=== PATIENT | male | born 1985 | race Caucasian/White ===

== ENCOUNTER 2016-11-07 22:53 | Emergency (ER) | payer BC ==
[2016-11-07] MEDS ORDERED: PREDNISONE 20 MG TAB PO ONE (23:05)
[2016-11-07] MEDS ORDERED: DIPHENHYDRAMINE HCL 25 MG CAPSULE PO ONE (23:05)
--- NOTE | 2016-11-07 23:12 | Emergency Department Record ---
History of Present Illness - General Chief complaint: Rash Stated complaint: RASH ON CHEST,BACK Time Seen by Provider: 11/07/16 23:05 Source: Patient Mode of Arrival: Ambulatory Limitations: No limitations - History of Present Illness Initial comments: 31 yo male presents to ED with a worsening rash since 17:00 this evening. Patient reports itching and redness to the chest and back, denies any new medications, foods, or contact with a new soap or detergent. Patient denies throat swelling, tongue swelling, or difficulty breathing. Patient denies health problems at his baseline. MD complaint: Rash Onset/Timin -: Hour(s) Location: Neck, Chest, Back Severity: Moderate Consistency: Constant Improves with: None Worsens with: None Associated symptoms: Itching Treatments Prior to Arrival: None - Related Data Previous Rx's Medication Instructions Recorded Famotidine [Pepcid] 40 mg PO DAILY #5 tablet 11/07/16 Prednisone [Prednisone 20Mg] 20 mg PO TID #12 tab 11/07/16 Allergies Allergy/AdvReac Type Severity Reaction Status Date / Time No Known Drug Allergies Allergy Verified 11/07/16 23:03 Travel Screening - Travel/Exposure Within Last 30 Days Have you traveled within the last 30 days?: No - Travel/Exposure Within Last Year Have you traveled outside the [place] in the last year?: No - Additonal Travel Details Have you been exposed to anyone with a communicable illness?: No - Travel Symptoms Symptom Screening: None Review of Systems Constitutional: Denies: Chills, Fever, Malaise, Night sweats Eyes: Denies: Eye discharge, Eye pain ENT: Denies: Congestion, Ear pain, Epistaxis Respiratory: Denies: Cough, Dyspnea Cardiovascular: Denies: Chest pain, Dyspnea on exertion Endocrine: Denies: Fatigue, Heat or cold intolerance Gastrointestinal: Denies: Abdominal pain, Nausea, Vomiting Genitourinary: Denies: Incontinence, Retention Musculoskeletal: Denies: Arthralgia, Back pain, Gout, Joint swelling Skin: Reports: Pruritus, Rash. Denies: Bruising, Change in color Neurological: Denies: Abnormal gait, Confusion, Headache, Seizure Psychiatric: Denies: Anxiety Hematological/Lymphatic: Denies: Anemia, Blood Clots Past Medical History - SOCIAL HISTORY Smoking Status: Never smoker Alcohol Use: None Drug Use: None - RESPIRATORY Hx Respiratory Disorders: No - CARDIOVASCULAR Hx Cardio Disorders: No - NEURO Hx Neuro Disorders: No - GI Hx GI Disorders: No - Hx Genitourinary Disorders: No - ENDOCRINE Hx Endocrine Disorders: No - MUSCULOSKELETAL Hx Musculoskeletal Disorders: No - PSYCH Hx Psych Problems: No - HEMATOLOGY/ONCOLOGY Hx Hematology/Oncology Disorders: No Family Medical History Any Significant Family History?: No Physical Exam - General General Appearance: Alert, Oriented x3, Cooperative, No acute distress Limitations: No limitations - Head Head exam: Atraumatic, Normocephalic, Normal inspection Head exam detail: negative: Abrasion, Contusion, Nicholson's sign, General tenderness, Hematoma, Laceration - Eye Eye exam: Normal appearance. negative: Conjunctival injection, Periorbital swelling, Periorbital tenderness, Scleral icterus - ENT Ear exam: negative: Auricular hematoma, Auricular trauma Nasal Exam: negative: Active bleeding, Discharge, Dried blood, Foreign body Mouth exam: negative: Drooling, Laceration, Muffled voice, Tongue elevation - Neck Neck exam: Normal inspection. negative: Meningismus, Tenderness - Respiratory Respiratory exam: Normal lung sounds bilaterally. negative: Respiratory distress, Rhonchi, Stridor - Cardiovascular Cardiovascular Exam: Regular rate, Normal rhythm, Normal heart sounds - GI/Abdominal GI/Abdominal exam: Soft. negative: Rebound, Rigid, Tenderness - Rectal Rectal exam: Deferred - exam: Deferred - Extremities Extremities exam: Normal inspection. negative: Calf tenderness, Pedal edema, Tenderness - Back Back exam: Reports: Normal inspection, Rash noted. Denies: CVA tenderness (R), CVA tenderness (L) - Neurological Neurological exam: Alert, Normal gait, Oriented X3 - Psychiatric Psychiatric exam: Normal affect, Normal mood - Skin Skin exam: Erythema, Rash, Urticaria. negative: Abrasion Type of lesion: Rash Distribution of rash: Back, Chest Description of rash: Erythematous, Macular Course Vital Signs 11/07/16 22:54 Temperature 97.5 F L Pulse Rate 70 Respiratory 16 Rate Blood Pressure 140/89 Pulse Ox 99 - Reevaluation(s) Reevaluation #1: 11/08/16 00:04 Patient reassessed, reports that his symptoms are improved, denies any throat swelling or difficulty breathing. Patient appears stable for discharge at this time. Disposition Disposition: Discharge Clinical Impression: Urticaria Disposition: Home, Self-Care Condition: (2) Stable Instructions: Urticaria (ED) Additional Instructions: Return to ED if your symptoms worsen or if you have any concerns. Benadryl, Prednisone, and Pepcid as directed. Follow-up with your family doctor in 1-3 days as directed. Prescriptions: Famotidine [Pepcid] 40 mg PO DAILY #5 tablet Prednisone [Prednisone 20Mg] 20 mg PO TID #12 tab Forms: Patient Portal Access Time of Disposition: 00:05
[2016-11-08] MEDS ORDERED: FAMOTIDINE 20MG TABLET PO SCH (10:00)
== END 2016-11-08 00:11 | disposition home or self-care (01) ==
LOC: ER 22:53
DX: L50.9 Urticaria, unspecified (principal)
CPT/HCPCS: 99282; J7512

== ENCOUNTER 2017-03-11 08:35 | Emergency (ER) | payer BC ==
[2017-03-11] MEDS ORDERED: PROPARACAINE HCL OPTH 15ML BTL OPTH ONE (08:47)
--- NOTE | 2017-03-11 09:18 | Emergency Department Record ---
History of Present Illness - General Chief complaint: Facial Swelling Stated complaint: SWELLING IN EYE/FACE Time Seen by Provider: 03/11/17 08:37 Source: Patient Mode of Arrival: Ambulatory Limitations: No limitations - History of Present Illness Initial Comments: 31 yo male presents with a rash to the left forehead that started on Sunday/ Sunday. He had mild pain that was well controlled with Tylenol. In the last day he developed irritation to the left eye and some left lid swelling. No vision changes. He takes his contacts out every evening. He is wearing his glasses today. No pain in the eye. No drainage in the eye. No rash to the nose. The rash is only on the left side of the scalp. MD Complaint: Facial swelling, Other Onset/Timin -: Days(s) Exposure: Unknown Symptoms: Facial swelling Severity: Mild Treatment Prior to Arrival: None Previous Allergy History: None - Related Data Previous Rx's Medication Instructions Recorded Famciclovir 500 mg PO TID #30 tablet 03/11/17 Allergies Allergy/AdvReac Type Severity Reaction Status Date / Time No Known Drug Allergies Allergy Verified 11/07/16 23:03 Travel Screening - Travel/Exposure Within Last 30 Days Have you traveled within the last 30 days?: No Review of Systems Constitutional: Denies: Chills, Fever, Weakness Eyes: Reports: Other (redness and lid swelling). Denies: Eye discharge, Eye pain, Photophobia, Vision change ENT: Denies: Congestion, Ear pain, Epistaxis, Throat pain Respiratory: Denies: Cough, Dyspnea, Hemoptysis, Stridor, Wheezes Cardiovascular: Denies: Chest pain, Palpitations, Syncope Endocrine: Denies: Fatigue, Polydipsia, Polyuria Gastrointestinal: Denies: Abdominal pain, Diarrhea, Nausea, Vomiting Genitourinary: Denies: Dysuria, Frequency, Hematuria, Urgency Musculoskeletal: Denies: Arthralgia, Back pain, Myalgia, Neck pain Skin: Reports: As per HPI, Rash. Denies: Bruising, Change in color Neurological: Reports: Headache (mild) Psychiatric: Denies: Anxiety, Depression Hematological/Lymphatic: Denies: Easy bleeding, Easy bruising, Swollen glands Past Medical History - SOCIAL HISTORY Smoking Status: Never smoker Alcohol Use: None Drug Use: None - RESPIRATORY Hx Respiratory Disorders: No - CARDIOVASCULAR Hx Cardio Disorders: No - NEURO Hx Neuro Disorders: No - GI Hx GI Disorders: No - Hx Genitourinary Disorders: No - ENDOCRINE Hx Endocrine Disorders: No - MUSCULOSKELETAL Hx Musculoskeletal Disorders: No - PSYCH Hx Psych Problems: No - HEMATOLOGY/ONCOLOGY Hx Hematology/Oncology Disorders: No Family Medical History Any Significant Family History?: No Physical Exam - General General Appearance: Alert, Oriented x3, Cooperative, No acute distress Limitations: No limitations - Head Head exam: Atraumatic. negative: Normal inspection Head exam detail: Other (rash) Image of Face/Head: 1 - scattered papules, no vesicles or scabs, no weeping or drainage, no rash on upper lid but mild swelling, no lesions on the tip of the nose - Eye Eye exam: PERRL, Conjunctival injection, EOMI, Periorbital swelling (very mild upper lid swelling). negative: Normal appearance, Periorbital tenderness, Scleral icterus Pupils: Normal accommodation. negative: Irregular, Unequal Visual acuity (L) = 20/: 25 Visual acuity (R) = 20/: 20 With correction: Yes - ENT ENT exam: Normal exam, Mucous membranes moist, Normal orophraynx Ear exam: Normal external inspection Nasal Exam: Normal inspection Mouth exam: Normal external inspection Teeth exam: Normal inspection - Neck Neck exam: Normal inspection, Full ROM. negative: Tenderness - Rectal Rectal exam: Deferred - exam: Deferred - Extremities Extremities exam: Normal inspection - Neurological Neurological exam: Alert, Normal gait, Oriented X3, Reflexes normal - Psychiatric Psychiatric exam: Normal affect, Normal mood - Skin Skin exam: Erythema, Rash Type of lesion: Rash Distribution of rash: Other (forehead, scalp) Description of rash: Erythematous, Papular Course Vital Signs 03/11/17 08:39 Temperature 97.8 F Pulse Rate 93 H Respiratory 20 Rate Blood Pressure 152/99 Pulse Ox 99 - Reevaluation(s) Reevaluation #1: The eye was stained with BioGlo No uptake noted on the wood's lamp examination The eye was examined with the Slit Lamp The anterior chamber is clear with out cloudiness or cells The surface is smooth and clear of findings The eye was stained and viewed under magnification of the surface for uptake. The surface is free of any uptake or lesions. NO ulcers or dentritic lesions. Mild conjunctival injection. No edema noted to the surface of the eye. Very mild upper lid edema without any papules or rash. No nasal rash. 03/11/17 09:22 We discussed at length signs and symptoms for return to the ED We discussed close follow up with the PCP and his eye doctor first of the week to recheck the eye 03/11/17 09:56 Disposition Disposition: Discharge Clinical Impression: Shingles Disposition: Home, Self-Care Condition: (1) Good Instructions: Shingles (ED) Additional Instructions: Immediately return if you have fever, severe headache, any changes in your vision. Use your glasses only until your eye doctor clears you to use contacts. Call Your eye doctor Sunday for follow up. Prescriptions: Famciclovir 500 mg PO TID #30 tablet Forms: Patient Portal Access Time of Disposition: 09:22
[2017-03-11] MEDS ORDERED: POLYMYXIN B SULF/TRIMETHOPRIM 10ML BTL OPTH ONE (09:29)
[2017-03-11] MEDS ORDERED: POLYMYXIN B SULF/TRIMETHOPRIM 10ML BTL OPTH SCH (09:30)
== END 2017-03-11 09:38 | disposition home or self-care (01) ==
LOC: ER 08:35
DX: B02.9 Zoster without complications (principal)
CPT/HCPCS: 99283

== ENCOUNTER 2018-03-16 22:46 | Emergency (ER) | payer BC ==
--- NOTE | 2018-03-16 23:20 | Emergency Department Record ---
History of Present Illness - General Chief Complaint: Laceration(s) Stated Complaint: LACERATION Time Seen by Provider: 03/16/18 22:53 Source: Patient Mode of Arrival: Ambulatory Limitations: No limitations - History of Present Illness Initial Commments: 32yo male presents with a laceration to the right hand. He was working with a tire. The ratchet strap released and the gear on the rachet hit his hand. He has a laceration to the palm side that is 1.5cm. No weakness, numbness, tingling, or loss of ROM. His last tetanus was 1 year. -: Minutes(s) Extremity Location: Right: Hand Place: Home Context: Accidental Associated Symptoms: None Treatments Prior to Arrival: Bandage - Jessica Coma Scale Eye Response: (4) Open spontaneously Motor Response: (6) Obeys commands Verbal Response: (5) Oriented Magness Total: 15 - Related Data Allergies Allergy/AdvReac Type Severity Reaction Status Date / Time No Known Drug Allergies Allergy Verified 11/07/16 23:03 Review of Systems Constitutional: Denies: Chills, Fever, Malaise Eyes: Denies: Eye discharge ENT: Denies: Congestion, Throat pain Respiratory: Denies: Cough Cardiovascular: Denies: Syncope Endocrine: Denies: Fatigue Gastrointestinal: Denies: Abdominal pain, Diarrhea, Nausea, Vomiting Genitourinary: Denies: Frequency Musculoskeletal: Denies: Arthralgia, Joint swelling, Myalgia Skin: Denies: Bruising, Change in color, Rash Neurological: Denies: Numbness, Tingling, Tremors, Weakness Psychiatric: Denies: Anxiety Hematological/Lymphatic: Denies: Easy bleeding, Easy bruising Past Medical History - SOCIAL HISTORY Smoking Status: Never smoker Drug Use: None - RESPIRATORY Hx Respiratory Disorders: No - CARDIOVASCULAR Hx Cardio Disorders: No - NEURO Hx Neuro Disorders: No - GI Hx GI Disorders: No - Hx Genitourinary Disorders: No - ENDOCRINE Hx Endocrine Disorders: No - MUSCULOSKELETAL Hx Musculoskeletal Disorders: No - PSYCH Hx Psych Problems: No - HEMATOLOGY/ONCOLOGY Hx Hematology/Oncology Disorders: No Physical Exam - General General Appearance: Alert, Oriented x3, Cooperative, No acute distress Limitations: No limitations - Head Head exam: Atraumatic, Normal inspection - Eye Eye exam: Normal appearance. negative: Conjunctival injection - ENT ENT exam: Normal exam Ear exam: Normal external inspection Nasal Exam: Normal inspection Mouth exam: Normal external inspection - Neck Neck exam: Normal inspection - Cardiovascular Peripheral Pulses: 2+: Radial (R) - Extremities Extremities exam: Full ROM, Normal capillary refill. negative: Normal inspection (laceration), Tenderness Image of Hand: 1 - laceration, linear, clean, - Neurological Neurological exam: Alert, Oriented X3 - Psychiatric Psychiatric exam: Normal affect, Normal mood - Skin Skin exam: Dry, Intact, Normal color, Warm Course Vital Signs 03/16/18 22:52 Temperature 98.1 F Pulse Rate [ 60 Pulse Ox Probe] Respiratory 16 Rate Blood Pressure 137/66 [Left Arm] Pulse Ox 100 - Reevaluation(s) Reevaluation #1: 03/16/18 23:22 Betadine prep Lidocaine 1% plain 2.5ml [place] cleaning NS irrigation copious with ZeroWet The wound was explored in a bloodless field No FB, No visible tendon injury Prolene suture 4-0 5 sutures placed We discussed home care and reasons to return to the ED Disposition Disposition: Discharge Clinical Impression: Hand laceration Disposition: Home, Self-Care Condition: (1) Good Instructions: Laceration (ED) Additional Instructions: Return to the ER if you have pain, redness, weakness or any other concerns. Suture removal in 10 days Keep the area dry and clean Clean the area with mild soap once daily Time of Disposition: 23:22 Quality - Quality Measures Quality Measures: N/A - Blood Pressure Screening Does Patient Have Any of the Following: No Blood Pressure Classification: Pre-Hypertensive BP Reading Systolic Measurement: 137 Diastolic Measurement: 66 Screening for High Blood Pressure: < Pre-Hypertensive BP, F/U Documented > [ [id number]] Pre-Hypertensive Follow-up Interventions: Referral to alternative/primary care provider.
== END 2018-03-16 23:41 | disposition home or self-care (01) ==
LOC: ER 22:46
DX: S61.411A Laceration without foreign body of right hand, initial encounter (principal); W22.8XXA Striking against or struck by other objects, initial encounter; Y92.009 Unspecified place in unspecified non-institutional (private) residence as the place of occurrence of the external cause
CPT/HCPCS: 12001; 99283

== ENCOUNTER 2018-03-24 15:15 | Emergency (ER) | payer BC ==
--- NOTE | 2018-03-24 15:45 | Emergency Department Record ---
History of Present Illness - General Chief Complaint: Suture removal Stated Complaint: SUTURE REMOVAL/RT HAND Time Seen by Provider: 03/24/18 15:40 - History of Present Illness Initial Comments: incision looks good and callous slightly open on his hand and 5 sutures removed Complaint: Suture/staple removal Onset/Timin -: Days(s) - Related Data Home Medications Medication Instructions Recorded Confirmed Last Taken No Home Med [NO HOME MEDS] 03/24/18 03/24/18 Unknown Allergies Allergy/AdvReac Type Severity Reaction Status Date / Time No Known Drug Allergies Allergy Verified 03/24/18 15:32 Travel Screening - Travel/Exposure Within Last 30 Days Have you traveled within the last 30 days?: No - Travel/Exposure Within Last Year Have you traveled outside the [place] in the last year?: No - Additonal Travel Details Have you been exposed to anyone with a communicable illness?: No - Travel Symptoms Symptom Screening: None Review of Systems Reviewed: No additional complaints except as noted below Constitutional: Reports: As per HPI. Denies: Chills, Fever, Malaise, Night sweats, Weakness, Weight change Eyes: Reports: As per HPI. Denies: Eye discharge, Eye pain, Photophobia, Vision change ENT: Reports: As per HPI. Denies: Congestion, Dental pain, Ear pain, Epistaxis , Hearing loss, Throat pain Respiratory: Reports: As per HPI. Denies: Cough, Dyspnea, Hemoptysis, Stridor, Wheezes Cardiovascular: Reports: As per HPI. Denies: Arrhythmia, Chest pain, Dyspnea on exertion, Edema, Murmurs, Orthopnea, Palpitations, Paroxysmal nocturnal dyspnea, Rheumatic Fever, Syncope Endocrine: Reports: As per HPI. Denies: Fatigue, Heat or cold intolerance, Polydipsia, Polyuria Gastrointestinal: Reports: As per HPI. Denies: Abdominal pain, Constipation, Diarrhea, Hematemesis, Hematochezia, Melena, Nausea, Vomiting Genitourinary: Reports: As per HPI. Denies: Dysuria, Frequency, Hematuria, Incontinence, Retention, Testicular pain, Testicular mass, Urgency Musculoskeletal: Reports: As per HPI. Denies: Arthralgia, Back pain, Gout, Joint swelling, Myalgia, Neck pain Skin: Reports: As per HPI. Denies: Bruising, Change in color, Change in hair/ nails, Lesions, Pruritus, Rash Neurological: Reports: As per HPI. Denies: Abnormal gait, Confusion, Headache, Numbness, Paresthesias, Seizure, Tingling, Tremors, Vertigo, Weakness Psychiatric: Reports: As per HPI. Denies: Anxiety, Auditory hallucinations, Depression, Homicidal thoughts, Suicidal thoughts, Visual hallucinations Hematological/Lymphatic: Reports: As per HPI. Denies: Anemia, Blood Clots, Easy bleeding, Easy bruising, Swollen glands Past Medical History - SOCIAL HISTORY Smoking Status: Never smoker Alcohol Use: None Drug Use: None - RESPIRATORY Hx Respiratory Disorders: No - CARDIOVASCULAR Hx Cardio Disorders: No - NEURO Hx Neuro Disorders: No - GI Hx GI Disorders: No - Hx Genitourinary Disorders: No - ENDOCRINE Hx Endocrine Disorders: No - MUSCULOSKELETAL Hx Musculoskeletal Disorders: No - PSYCH Hx Psych Problems: No - HEMATOLOGY/ONCOLOGY Hx Hematology/Oncology Disorders: No Family Medical History Any Significant Family History?: Yes Physical Exam - General General Appearance: Alert, Oriented x3, Cooperative, No acute distress - Head Head exam: Normal inspection - Eye Eye exam: Normal appearance, PERRL Pupils: Normal accommodation - ENT ENT exam: Normal exam, Mucous membranes moist, Normal external ear exam, Normal orophraynx, TM's normal bilaterally Ear exam: Normal external inspection. negative: External canal tenderness Nasal Exam: Normal inspection. negative: Discharge, Sinus tenderness Mouth exam: Normal external inspection, Tongue normal Teeth exam: Normal inspection. negative: Dental caries Throat exam: Normal inspection. negative: Tonsillar erythema, Tonsillar exudate - Neck Neck exam: Normal inspection, Full ROM. negative: Tenderness - Respiratory Respiratory exam: Normal lung sounds bilaterally. negative: Respiratory distress - Cardiovascular Cardiovascular Exam: Regular rate, Normal rhythm, Normal heart sounds - GI/Abdominal GI/Abdominal exam: Soft, Normal bowel sounds. negative: Tenderness - Rectal Rectal exam: Deferred - exam: Deferred - Extremities Extremities exam: Normal inspection, Full ROM, Normal capillary refill. negative: Tenderness - Back Back exam: Reports: Normal inspection, Full ROM. Denies: Muscle spasm, Rash noted, Tenderness - Neurological Neurological exam: Alert, Normal gait, Oriented X3, Reflexes normal - Psychiatric Psychiatric exam: Normal affect, Normal mood - Skin Skin exam: Dry, Intact, Normal color, Warm Course Vital Signs 03/24/18 15:26 Temperature 97.8 F Pulse Rate 67 Respiratory 16 Rate Blood Pressure 111/66 Pulse Ox 98 Disposition Clinical Impression: Visit for suture removal Disposition: Home, Self-Care Condition: (1) Good Instructions: Stitches Removal (ED) Time of Disposition: 15:45 Quality - Quality Measures Quality Measures: N/A - Blood Pressure Screening Does Patient Have Any of the Following: No Blood Pressure Classification: Normal BP Reading Systolic Measurement: 111 Diastolic Measurement: 66 Screening for High Blood Pressure: < Normal BP, F/U Not Required > [G8783]
== END 2018-03-24 15:46 | disposition home or self-care (01) ==
LOC: ER 15:15
DX: Z48.02 Encounter for removal of sutures (principal)